=== PATIENT | female | born 1995 | race Caucasian/White ===

== ENCOUNTER 2022-04-07 15:43 | Emergency (ER) | payer OTHER, SELFPAY | END 2022-04-07 16:28 | disposition left against medical advice (07) | DX: Z53.21 Procedure and treatment not carried out due to patient leaving prior to being seen by health care provider (principal) | CPT/HCPCS: 99199 ==

== ENCOUNTER 2022-04-09 16:36 | Emergency (ER) | payer OTHER, SELFPAY ==
--- NOTE | ~2022-04-09 | XR_ITS ---
EXAMINATION: XR chest 2V DATE: 04/09/2022 17:25 INDICATION: Cough TECHNIQUE: PA and lateral views of the chest were obtained. COMPARISON: Chest radiograph dated 07/22/2016 FINDINGS: Linear atelectasis/scarring at the lateral left upper lung zone. No other airspace opacities, pulmona ry edema, pleural effusion or pneumothorax. The cardiomediastinal silhouette is normal. Visualized mukesh jeremy and soft tissues are unremarkable. IMPRESSION: 1. Mild linear atelectasis/scarring at the lateral left upper lung zone. Reviewed, dictated and finalized at location A. MANAGER
--- NOTE | 2022-04-09 16:43 | ECG_ITS ---
Measurements Intervals [place] Rate: 91 P: 59 MD: 141 QRS: 90 QRSD: 85 T: 64 QT: 343 QTc: 422 Interpretive Statements SINUS RHYTHM BASELINE ARTIFACT- I, II, III, AVR, AVL, V1-V6 BORDERLINE ECG NO PREVIOUS ECG AVAILABLE FOR COMPARISON Electronically Signed On 04-09-2022 20:53:49 EXCEPTIONAL CHILDREN TEACHER ASSISTANT by Scott Perdomo D.O.
[2022-04-09 16:44] VITALS: BP 139/82; PULSE 100; RESP 19; TEMP 36.4; O2SAT 99
--- NOTE | 2022-04-09 16:44 | ED.GENADULT ---
HPI - General Adult General Chief complaint: Unspecified Stated complaint: huffing duster x 3 cans, huffing abuse hx Time Seen by Provider: 04/09/22 16:37 History of Present Illness HPI narrative: This is a 26-year-old female with past medical history of illicit drug use, presents the emergency department requesting evaluation after huffing. Patient states she huffed 3 cans today in effort to get high. She denies homicidal or suicidal ideations. She states she has a headache after a fall yesterday but denies loss of consciousness, weakness or numbness. She has no other complaints today. Related Data Allergies Allergy/AdvReac Type Severity Reaction Status Date / Time adhesive tape Allergy Unknown Verified 11/23/16 10:14 Review of Systems Review of Systems: CONSTITUTIONAL: Denies fever, chills, or sweats. EYES: Denies visual changes, redness, or discharge. ENT: Denies rhinorrhea, congestion, sore throat, or otalgia. CARDIOVASCULAR: Denies chest pain, palpitations, or edema. RESPIRATORY: Denies cough or dyspnea. GASTROINTESTINAL: Denies abdominal pain, nausea, vomiting, or diarrhea. GENITOURINARY: Denies dysuria or hematuria. SKIN: Denies rash or itching. MUSCULOSKELETAL: Denies back pain, joint pain, or myalgia. NEUROLOGIC: Headache denies numbness, dizziness, or weakness. PSYCHIATRIC: Denies anxiety or depression. PMFSH Past Medical History Medical History (Updated 04/09/22 @ 18:34 by Tc Ellison MD) Amphetamine abuse Pulmonary embolism Surgical History Surgical History (Updated 04/09/22 @ 18:31 by Tc Ellison MD) History of lobectomy of lung Social History Social History (Updated 04/09/22 @ 16:46 by Tc Ellison MD) Alcohol intake: current Substance use: current Substance use type: amphetamines and inhalants Exam Narrative: GENERAL: Well-developed, well-nourished, and in no acute distress. Smells of aerosols HEAD: Normocephalic, 1 cm healing scalp laceration noted over the left parietal scalp, no noted active bleeding or hematoma. EYES: PERRLA and EOMI. ENT: Nares clear, no rhinorrhea or epistaxis. Mucous membranes moist. Oropharynx without tonsillar hypertrophy exudate or other lesions. NECK: Supple. No adenopathy or masses. No carotid bruits or JVD CHEST: Clear to auscultation. No respiratory distress. No wheezes rales or rhonchi HEART: Regular rate and rhythm. No murmur heard. Normal peripheral pulses. ABDOMEN: Soft, nontender, nondistended, normal active bowel sounds. EXTREMITIES: Normal range of motion. No edema. SKIN: Warm, dry, no rash. NEURO: No focal deficits. Alert and oriented x3. Patient seen ambulating in the emergency department with a normal gait PSYCH: Normal mood and affect. Course Course Emergency Course: 17:47 - Chest x-ray shows left-sided scarring (the patient states she has had a lobectomy). Chemistries are unremarkable. Patient's test is negative and EKG is not concerning for arrhythmia. The scalp laceration appears clean, dry and healing. I do not suspect need for repair. Will discharge. Discussed return emergency precautions including signs/symptoms of arrhythmia. The patient voiced understanding is comfortable to plan. All questions answered to her satisfaction. Vital Signs Vital signs: Vital Signs Temperature 97.6 F 04/09/22 16:44 Pulse Rate 100 04/09/22 16:44 Respiratory Rate 19 04/09/22 16:44 Blood Pressure 139/82 04/09/22 16:44 Pulse Oximetry 99 04/09/22 16:44 Oxygen Delivery Room Air 04/09/22 16:44 Temperature 97.6 F 04/09/22 16:44 Pulse Rate 100 04/09/22 16:44 Respiratory Rate 19 04/09/22 16:44 Blood Pressure 139/82 04/09/22 16:44 Pulse Oximetry 99 04/09/22 16:44 Oxygen Delivery Room Air 04/09/22 16:44 Medical Decision Making [facility] Narrative Medical decision making narrative: Plan: Imaging, EKG, labs, reassess Differential Diagnosis Differential Diagnosis: Drug/alc
[2022-04-09] MEDS: ACETAMINOPHEN 500 MG TABLET 1000 MG PO (16:55)
[2022-04-09 17:17] LABS: Pregnancy On Board Control Positive; Urine Pregnancy Test Negative
[2022-04-09 17:22] LABS: Anion Gap 11 mmol/L (8-16); Blood Urea Nitrogen 13 mg/dL (7-17); Calcium 8.3 mg/dL (8.4-10.2); Carbon Dioxide 23 mmol/L (22-30); Chloride 104 mmol/L (98-107); Estimated CRCL calculation 86 ml/min; Estimated Glomerular Filt Rate > 60; Glucose 98 mg/dL (65-110); Potassium 4.1 mmol/L (3.4-5.0); Sodium 138 mmol/L (137-145)
== END 2022-04-09 18:11 | disposition home or self-care (01) ==
PROVIDERS: Emergency Provider Preventive Medicine Aerospace Medicine
DX: F18.10 Inhalant abuse, uncomplicated (principal); F19.10 Other psychoactive substance abuse, uncomplicated; S01.01XA Laceration without foreign body of scalp, initial encounter; Z90.2 Acquired absence of lung [part of]; Z86.711 Personal history of pulmonary embolism; R94.31 Abnormal electrocardiogram [ECG] [EKG]; W19.XXXA Unspecified fall, initial encounter
CPT/HCPCS: 36415; 71046; 80048; 81025; 93005; 99283; A9270

== ENCOUNTER 2023-07-12 13:24 | Emergency (ER) | payer OTHER, SELFPAY ==
--- NOTE | 2023-07-12 13:35 | PC.NURSE ---
DNAP [id number]
--- NOTE | 2023-07-12 13:45 | PC.NURSE ---
DNAP [id number]
--- NOTE | 2023-07-12 14:00 | PC.NURSE ---
DNAP 1400
== END 2023-07-12 14:36 | disposition left against medical advice (07) ==
DX: Z53.21 Procedure and treatment not carried out due to patient leaving prior to being seen by health care provider (principal)
CPT/HCPCS: 99199

== ENCOUNTER 2023-07-12 14:36 | Emergency (ER) | payer OTHER, SELFPAY ==
[2023-07-12 15:05] VITALS: BP 108/63; PULSE 92; RESP 16; TEMP 36.6; O2SAT 100
--- NOTE | 2023-07-12 18:05 | ED.FEMALEGU ---
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 Patient states she was called by [facility] and told that a culture that she had drawn last week and was positive for MRSA. She was told to go to the hospital. Patient reports she has redness and swelling to the outside of the left lip. States she noticed some discharge but not more than normal.. Denies fevers, chills, nausea, vomiting, abdominal pain or vaginal bleeding. Related Data Allergies Allergy/AdvReac Type Severity Reaction Status Date / Time adhesive tape Allergy Unknown Verified 11/23/16 10:14 Review of Systems Review of Systems: All systems as dictated in HPI [facility] Past Medical History Medical History (Updated 07/12/23 @ 18:25 by Harry Monk PA-C) Amphetamine abuse Pulmonary embolism Surgical History Surgical History (Updated 04/09/22 @ 18:31 by Tc Ellison MD) History of lobectomy of lung Social History Social History (Updated 04/09/22 @ 16:46 by Tc Ellison MD) Alcohol intake: current Substance use: current Substance use type: amphetamines and inhalants Exam Narrative: GENERAL: Well-appearing, well-nourished, and in no acute distress. HEAD: Normocephalic, atraumatic. EYES: PERRLA and EOMI. ENT: Nares clear, no rhinorrhea or epistaxis. Mucous membranes moist. Oropharynx without tonsillar hypertrophy exudate or other lesions. NECK: Supple. No adenopathy or masses. CHEST: No respiratory distress. Clear to auscultation. No wheezes rales or rhonchi HEART: Regular rate and rhythm. No murmur heard. Normal peripheral pulses. ABDOMEN: Soft, nontender, nondistended, normal active bowel sounds. MSK: Normal range of motion. No edema. SKIN: Warm, dry, no rash. NEURO: Alert and oriented x3. No focal deficits. PSYCH: Normal mood and affect. exam performed with female RN color paste mixer present: There is obvious swelling to left labia. No tenderness. Scant drainage noted externally. Course Course Emergency Course: Consult 50: Spoke with Dr. Carpio. He is able to confirm that the culture recently showed MRSA. Given the patient's condition at this point he would like to see her in clinic for follow-up. He does not feel that the lesion needs to be drained today. He agrees with starting on Bactrim. Vital Signs Vital signs: Vital Signs Temperature 97.9 F 07/12/23 15:05 Pulse Rate 92 07/12/23 15:05 Respiratory Rate 16 07/12/23 15:05 Blood Pressure 108/63 07/12/23 15:05 Pulse Oximetry 100 07/12/23 15:05 Temperature 97.9 F 07/12/23 15:05 Pulse Rate 92 07/12/23 15:05 Respiratory Rate 16 07/12/23 15:05 Blood Pressure 108/63 07/12/23 15:05 Pulse Oximetry 100 07/12/23 15:05 MDM - Female Genitourinary MDM Narrative Medical decision making narrative: This is a 27-year-old female who presents to the ED with chief complaint of vulvar swelling for the past several days. Apparently she was contacted by [facility] while in prison today and told she had MRSA. Vitals are normal. Afebrile. She appears otherwise well. Endorses history of IV drug use with last use 2 months ago. On exam there does appear to be area of swelling consistent with Bartholin's cyst. No erythema or tenderness. No drainage. Discussed the case with Dr. Carpio (OBGYN) who recommends getting the patient is started on Bactrim and having her follow-up in clinic this week. Pt will be discharged in stable condition. Return precautions given and supportive measures discussed. Pt is understanding and agreeable with plan for discharge and follow-up with PCP/OBgyn Phillipa
--- NOTE | 2023-07-12 18:07 | PC.NURSE ---
RN chaperoned Suhas POWERS for external vaginal exam. Noted left labia swollen, pt denies pain states itching occasionally. No drainage noted.
== END 2023-07-12 19:15 | disposition home or self-care (01) ==
PROVIDERS: Emergency Provider Physician Assistant
DX: N75.0 Cyst of Bartholin's gland (principal)
CPT/HCPCS: 99283

== ENCOUNTER 2023-11-16 09:31 | Outpatient (CLI) | payer OTHER, SELFPAY ==
[2023-11-16 10:29] LABS: Basophils Absolute Auto 0.1 K/mm3 (0.0-0.1); Basophils Percent Auto 0.7 % (0.2-1.2); Eosinophils Absolute Auto 0.2 K/mm3 (0-0.3); Eosinophils Percent Auto 1.9 % (0-4.4); Hematocrit 43.1 % (37.0-47.0); Hemoglobin 14.4 g/dL (12.0-15.0); Immature Granulocyte Absolute 0.05 K/mm3 (0.00-0.031); Immature Granulocyte Percent A 0.4 % (0-0.5); Lymphocytes Absolute Auto 3.21 K/mm3 (0.9-3.2); Lymphocytes Percent Auto 27.4 % (18.3-44.2); Mean Corpuscular HGB Conc 33.4 g/dl (32-36); Mean Corpuscular Hemoglobin 32.5 pg (26-34); Mean Corpuscular Volume 97.3 fl (80-100); Mean Platelet Volume 8.9 fl (7.4-10.4); Monocytes Absolute Auto 0.6 K/mm3 (0.1-0.6); Monocytes Percent Auto 4.7 % (2.6-8.5); Neutrophils Absolute Auto 7.6 K/mm3 (1.3-6.7); Neutrophils Percent Auto 64.9 % (45.5-73.1); Platelet Count Result 436 k/mm3 (150-375); Red Blood Count 4.43 M/mm3 (4.2-5.4); Red Cell Distribution Width 12.9 % (11.5-14.5); White Blood Count 11.7 K/mm3 (4.5-10.0)
[2023-11-16 10:41] LABS: Alanine Aminotransferase 20 U/L (6-35); Alkaline Phosphatase 91 U/L (38-126); Anion Gap 10 mmol/L (4-12); Aspartate Amino Transferase 28 U/L (14-36); Bilirubin,Total 1.1 mg/dL (0.2-1.3); Blood Urea Nitrogen 14 mg/dL (7-17); Calcium 9.5 mg/dL (8.4-10.2); Carbon Dioxide 29 mmol/L (22-30); Chloride 101 mmol/L (98-107); Cholesterol 224 mg/dL (0-200); Estimated Glomerular Filt Rate > 60; Glucose 102 mg/dL (65-110); Potassium 4.2 mmol/L (3.4-5.0); Sodium 140 mmol/L (137-145); Triglycerides 137 mg/dL (<150)
[2023-11-16 10:50] LABS: LDL Cholesterol Direct 76 mg/dL
[2023-11-16 10:57] LABS: HDL Direct 135 mg/dL
[2023-11-16 11:19] LABS: HIV 1/2 Ab P24 Ag Result Negative (Negative)
[2023-11-16 11:31] LABS: Hepatitis B Surface Antigen Negative (Negative)
[2023-11-16 11:48] LABS: Hepatitis C Virus Antibody Negative (Negative)
[2023-11-16 14:08] LABS: Rapid Plasma Reagin Non-Reactive (NonReactive)
== END 2023-11-16 09:32 | disposition home or self-care (01) ==
DX: D68.51 Activated protein C resistance (principal); Z20.89 Contact with and (suspected) exposure to other communicable diseases; Z20.9 Contact with and (suspected) exposure to unspecified communicable disease; F31.9 Bipolar disorder, unspecified
CPT/HCPCS: 36415; 80053; 80061; 83036; 85025; 85303; 86592; 86703; 86803; 87340; G0432

== ENCOUNTER 2023-11-25 19:50 | Emergency (ER) | payer OTHER, SELFPAY ==
--- NOTE | ~2023-11-25 | CT_ITS ---
EXAMINATION: CT brain wo con DATE: 11/25/2023 20:23 INDICATION: Headache. TECHNIQUE: Computed tomography (CT) of the head was performed without intravenous contrast. The mA wa s adjusted according to patient size. Iterative reconstruction technique was employed. The dose-lengt h product was 605.33 mGy-cm. COMPARISON: Head CT 11/23/2016 FINDINGS: There is no intracranial hemorrhage, acute infarction, or abnormal intracranial mass lesion . The ventricles are normal in size. The paranasal sinuses are clear. The mastoid air cells are maria del rosario l. IMPRESSION: 1. Normal brain. Reviewed, dictated and finalized at location E. IMPRESSION: 1. Normal brain.
[2023-11-25 19:52] VITALS: BP 106/64; PULSE 100; RESP 16; TEMP 36.5; O2SAT 100
[2023-11-25 20:54] LABS: Basophils Absolute Auto 0.1 K/mm3 (0.0-0.1); Basophils Percent Auto 0.8 % (0.2-1.2); Eosinophils Absolute Auto 0.2 K/mm3 (0-0.3); Eosinophils Percent Auto 2.2 % (0-4.4); Hematocrit 41.3 % (37.0-47.0); Immature Granulocyte Absolute 0.02 K/mm3 (0.00-0.031); Immature Granulocyte Percent A 0.2 % (0-0.5); Lymphocytes Absolute Auto 5.22 K/mm3 (0.9-3.2); Lymphocytes Percent Auto 47.2 % (18.3-44.2); Mean Corpuscular HGB Conc 33.9 g/dl (32-36); Mean Corpuscular Hemoglobin 33.3 pg (26-34); Mean Corpuscular Volume 98.3 fl (80-100); Monocytes Absolute Auto 0.6 K/mm3 (0.1-0.6); Monocytes Percent Auto 5.5 % (2.6-8.5); Neutrophils Absolute Auto 4.9 K/mm3 (1.3-6.7); Neutrophils Percent Auto 44.1 % (45.5-73.1); Platelet Count Result 448 k/mm3 (150-375); White Blood Count 11.1 K/mm3 (4.5-10.0)
[2023-11-25 20:57] LABS: Appearance Urine Clear (Clear); Bilirubin Urine Negative (Negative); Blood Urine Negative (Negative); Color Urine Yellow (Yellow); Glucose Urine UA Negative (Negative); Ketones Urine Negative (Negative); Leukocyte Esterase Ur Negative LEU/UL (Negative); Nitrate Urine Negative (Negative); Protein Urine Negative (Negative); Specific Grav Ur 1.009 (1.001-1.035); Urobilinogen Urine 0.2 mg/dL (<2.0)
--- NOTE | 2023-11-25 21:00 | ED.GENADULT ---
HPI - General Adult General Chief complaint: Unspecified Stated complaint: brain zaps and vomiting Time Seen by Provider: 11/25/23 20:12 Source: patient Mode of arrival: ambulatory Limitations: no limitations History of Present Illness HPI narrative: This is a 28 year old female that presents to the ER for abnormal sensations in her brain. Reports she has history of a TBI. Has headaches and abnormal sensations that have been ongoing over the last year. Reports today she was feeling zaps in her brain. Reports an episode of vomiting. Reports she is currently in [facility] for methamphetamine abuse. Denies vision changes, focal numbness or weakness. Related Data Allergies Allergy/AdvReac Type Severity Reaction Status Date / Time adhesive tape Allergy Unknown Other Verified 11/25/23 19:51 Review of Systems Review of Systems: CONSTITUTIONAL: Denies fever EYES: Denies visual changes GASTROINTESTINAL: Denies vomiting NEUROLOGIC: Reports headache. Denies numbness, or weakness. All systems reviewed & are unremarkable except as noted in HPI and below PMFSH Past Medical History Medical History (Updated 11/26/23 @ 02:26 by Patricia Morales PA-C) Amphetamine abuse Pulmonary embolism Surgical History Surgical History (Updated 04/09/22 @ 18:31 by Tc Ellison MD) History of lobectomy of lung Social History Social History (Updated 04/09/22 @ 16:46 by Tc Ellison MD) Alcohol intake: current Substance use: current Substance use type: amphetamines and inhalants Exam Narrative: GENERAL: Well-appearing, well-nourished, and in no acute distress. HEAD: Normocephalic, atraumatic. EYES: PERRLA and EOMI. ENT: Nares clear, no rhinorrhea or epistaxis. Mucous membranes moist. Oropharynx without tonsillar hypertrophy exudate or other lesions. Bilateral TMs pearly andrade non-bulging NECK: Supple. No adenopathy or masses. CHEST: Clear to auscultation. No respiratory distress. No wheezes rales or rhonchi HEART: Regular rate and rhythm. No murmur heard. Normal peripheral pulses. EXTREMITIES: Normal range of motion. No edema. SKIN: Warm, dry, no rash. NEURO: No focal deficits. Alert and oriented x3. Cranial nerves 2-12 grossly intact PSYCH: Normal mood and affect Course Course Emergency Course: patient reports relief with IV fluids, Reglan and, Benadryl and Toradol Vital Signs Vital signs: Vital Signs Temperature 97.7 F 11/25/23 19:52 Pulse Rate 100 11/25/23 19:52 Respiratory Rate 16 11/25/23 19:52 Blood Pressure 106/64 11/25/23 19:52 Pulse Oximetry 100 11/25/23 19:52 Oxygen Delivery Room Air 11/25/23 19:52 Temperature 97.7 F 11/25/23 19:52 Pulse Rate 99 11/25/23 22:09 Respiratory Rate 14 11/25/23 22:09 Blood Pressure 119/93 H 11/25/23 22:09 Pulse Oximetry 98 11/25/23 22:09 Oxygen Delivery Room Air 11/25/23 19:52 Medical Decision Making MDM Narrative Medical decision making narrative: Patient presents to the emergency department for headache. Reporting abnormal sensations which have been present since her TBI. She is currently at [facility] for methamphetamine detox. She is afebrile and nontoxic appearing. Her vitals are stable. CBC with mild leukocytosis to 11.1. Hemoglobin is normal. Metabolic panel with mild transaminitis. Urine without evidence of infection. Drug screen negative. CT brain is normal. patient reports relief with IV fluids, Reglan and, Benadryl and Toradol. Instructed to have further follow-up with primary provider. She was given warnings to return to the ER Differential Diagnosis Differential Diagnosis: Headache, migraine, postconcussion syndrome, dehydration Vital Signs Vital Signs: Vital Signs Temperature 97.7 F 11/25/23 19:52 Pulse Rate 100 11/25/23 19:52 Respiratory Rate 16 11/25/23 19:52 Blood Pressure 106/64 11/25/23 19:52 Pulse Oximetry 100 11/25/23 19:52 Oxygen Delivery Room Air 11/25/23
[2023-11-25 21:09] LABS: Add Urine Microscopic? NO; Alanine Aminotransferase 102 U/L (6-35); Albumin Level 5.2 g/dL (3.5-5.1); Alkaline Phosphatase 88 U/L (38-126); Anion Gap 10 mmol/L (4-12); Aspartate Amino Transferase 77 U/L (14-36); Bilirubin,Total 0.5 mg/dL (0.2-1.3); Blood Urea Nitrogen 15 mg/dL (7-17); Calcium 10.2 mg/dL (8.4-10.2); Carbon Dioxide 31 mmol/L (22-30); Chloride 100 mmol/L (98-107); Estimated CRCL calculation 102 ml/min; Estimated Glomerular Filt Rate > 60; Glucose 83 mg/dL (65-110); Magnesium 2.1 mg/dL (1.6-2.3); Potassium 4.3 mmol/L (3.4-5.0); Sodium 141 mmol/L (137-145)
[2023-11-25 21:12] LABS: Amphetamine Screen Urine Negative (Negative); Barbiturate Screen Urine Negative (Negative); Benzodiazepines Screen Urine Negative (Negative); Cannabinoid Screen Urine Negative (Negative); Cocaine Screen Urine Negative (Negative); Methadone Screen Urine Negative (Negative); Opiate Screen Urine Negative (Negative); Phencyclidine Screen Urine Negative (Negative)
[2023-11-25] MEDS: SODIUM CHLORIDE 0.9% IV 1,000 ML 999 ML IV CONT (21:33)
[2023-11-25] MEDS: KETOROLAC 15 MG/ML VIAL (*BKC) IV PUSH (21:34)
[2023-11-25] MEDS: diphenhydrAMINE HCl INJ 50 MG/ML VIAL 25 MG IV PUSH (21:34)
[2023-11-25] MEDS: METOCLOPRAMIDE HCL INJ 10 MG/2 ML VIAL IV PUSH (21:34)
[2023-11-25 22:09] VITALS: BP 119/93; PULSE 99; RESP 14; O2SAT 98
== END 2023-11-25 22:37 | disposition home or self-care (01) ==
PROVIDERS: Emergency Provider Physician Assistant
DX: R51.9 Headache, unspecified (principal); F15.10 Other stimulant abuse, uncomplicated; Z87.820 Personal history of traumatic brain injury; Z86.711 Personal history of pulmonary embolism; Z90.2 Acquired absence of lung [part of]
CPT/HCPCS: 36415; 70450; 80053; 80307; 81003; 83735; 85025; 96361; 96374; 96375; 99284; J1200; J1885; J2765; J7030